=== PATIENT | male | born 1955 | race Caucasian/White ===

== ENCOUNTER 2017-07-27 06:55 | Observation (INO) | payer BC ==
[2017-07-27] VITALS (18 sets, daily range): BP systolic 128–145; BP diastolic 67–88; PULSE 63–73; RESP 12–23; Ht 175.3 cm; Wt 74.0 kg
[~2017-07-27] VITALS: Ht 175.3 cm; Wt 74.0 kg
[~2017-07-27 06:55] MED LIST: CEFAZOLIN 1 GM/50 ML (PMX) 50 ML IVPB SCH
[2017-07-27] MEDS ORDERED: CEFAZOLIN 2 GM/50 ML (PMX) 50 ML IVPB ONE (07:07)
[2017-07-27] MEDS ORDERED: HYDR-902 PO (07:26)
[2017-07-27] MEDS ORDERED: AMIO200T2 PO (07:27)
[2017-07-27] MEDS ORDERED: DIAZ5TAB4 PO (07:27)
[2017-07-27] MEDS ORDERED: TICA90TA PO (07:28)
[2017-07-27] MEDS ORDERED: ATOR40TA68 PO (07:28)
[2017-07-27] MEDS ORDERED: RIVA20TA PO (07:29)
[2017-07-27] MEDS ORDERED: DILT180C55 PO (07:30)
[2017-07-27] MEDS ORDERED: DILT180T PO (07:30)
[2017-07-27] MEDS ORDERED: ONDANSETRON 4 MG INJ IV PRN (08:30)
[2017-07-27] MEDS ORDERED: hydrALAzine 20 MG INJ IV PRN (08:30)
[2017-07-27] MEDS ORDERED: LABETALOL HCL 20MG INJ IV PRN (08:30)
[2017-07-27] MEDS ORDERED: FENTAnyl 50 MCG/ML VIAL IV PRN ×2 (08:30)
[2017-07-27] MEDS ORDERED: MIDAZOLAM 1 MG/ML 2 ML INJ IV PRN (08:30)
[2017-07-27] MEDS ORDERED: FENTAnyl 50 MCG/ML VIAL ONE ×2 (08:31→08:32)
[2017-07-27] MEDS ORDERED: ONDANSETRON 4 MG INJ ONE (08:31)
[2017-07-27] MEDS ORDERED: PROPOFOL 100 ML ONE (08:31)
[2017-07-27] MEDS ORDERED: MIDAZOLAM 1 MG/ML 2 ML INJ ONE (08:31)
[2017-07-27] MEDS ORDERED: LIDOCAINE 2% (SDV) 5 ML INJ ONE (08:31)
[2017-07-27] MEDS ORDERED: LIDOCAINE 1%/EPI 30 ML INJ ONE (08:43)
[2017-07-27] MEDS ORDERED: LIDOCAINE 1% (MDV) 20 ML INJ ONE (08:57)
[2017-07-27] MEDS ORDERED: IODIXANOL LOCM 50 ML BTL ONE (10:36)
[2017-07-27] MEDS ORDERED: SOD CHLORIDE 0.9% 1,000 ML ONE (10:37)
--- NOTE | 2017-07-27 10:59 | SIPON ---
Date/Time of Note Date/Time of Note DATE: 07/27/17 TIME: 10:58 Operative Report Preoperative Diagnosis sick sinus syndrome Postoperative Diagnosis same Operation/Procedure Performed pace maker implant Surgeon see signature line social worker assistant none Anesthesia: moderate sedation Estimated blood loss: none Transfusion Required none Specimen pacer implant Grafts/Implants none Complications none CATHRYN ALY MD Jul 27, 2017 10:59
[2017-07-27] MEDS: morphine (1 MG/ML) 10ML SYRINGE IV PRN ×3 (11:30→11:49)
[2017-07-27] MEDS ORDERED: HYDROCODONE/APAP (10/325) TAB PO PRN ×2 (11:30→13:35)
[2017-07-27] MEDS: SOD CHLORIDE 0.9% 1,000 ML IV SCH (12:27)
[2017-07-27] MEDS: CEFAZOLIN 1 GM/50 ML (PMX) 50 ML IVPB SCH ×2 (13:40→22:36)
[2017-07-27] MEDS: DIAZEPAM 5 MG TAB PO SCH ×2 (13:41→20:51)
[2017-07-27] MEDS ORDERED: CEFAZOLIN 1 GM/50 ML (PMX) 50 ML IVPB SCH (14:00)
--- NOTE | 2017-07-27 14:18 | RADRPT ---
PROCEDURE: XR Chest. CLINICAL INDICATION: Pacemaker placement. TECHNIQUE: Single frontal view. COMPARISON: None. FINDINGS: The lungs are clear. There is a dual lead permanent pacemaker. The heart size is normal. There is no pleural effusion. There is no pneumothorax. IMPRESSION: 1. Dual lead permanent pacemaker. 2. Otherwise normal chest radiograph. 3. No pneumothorax. RPTAT: QQ .Richard Mccarthy MD, MD Date Time Electronically viewed and signed by .Richard Mccarthy MD, MD on 07/27/2017 14:17 .R/
--- NOTE | 2017-07-27 14:47 | OPR ---
DATE OF OPERATION: 07/27/2017 INDICATION FOR THE PROCEDURE: Sick sinus syndrome, severe bradycardia with episodes of pauses leadi ng to episodes of near syncope and fatigue. The patient presents for pacemaker implant. PROCEDURE: 1. Implantation of dual chamber pacemaker. 2. Implantation of right atrial lead. 3. Implantation of right ventricular lead. 4. Right atrial pacing recording. 5. Right ventricular pacing recording. 6. Catheter placement from the superior vena cava. 7. Lead placement in the right atrium and right ventricle as I mentioned. 8. Contrast sonography of the superior vena cava and subclavian vessel on the left side. 9. O2 saturation monitoring and blood pressure monitoring. 10. Defibrillator pad placements anteriorly and posteriorly. 11. Autonomic nervous system interrogation. DESCRIPTION OF PROCEDURE: After informed consent was obtained by the patient, the patient was broug ht into the cardiac catheterization laboratory where the patient's left chest and neck region was pr epped and draped in usual sterile fashion. Following this, 1% lidocaine was used in order to infilt rate at the left deltopectoral groove. Following this, a 1 inch incision was made. No complication s occurred. Following this, the patient then had contrast sonography and subclavian stick and leads were placed in the right atrium and right ventricle with no complications. Following this, right a trial pacing recording, right ventricular pacing recording was performed. Device was brought to the field. Device and leads were connected to each other and placed into the pocket. Pocket was sutur ed using 2-0 Vicryl and 4-0 Vicryl. IMPRESSION: Implantation of a dual chamber [employer] pacemaker. Please see the implant shee t for the pacing and recording as well as the device information. Dictated By: CATHRYN ALY MD, LP/SOLOMON Conf#: [id number] DID#: [id number]
[2017-07-27] MEDS: morphine 2 MG INJ IV PRN ×2 (14:51→18:41)
--- NOTE | 2017-07-27 14:53 | RADRPT ---
Vent Rate: 73 bpm RR Interval: 0 msec [place] Interval: 210 msec QRS Duration: 84 msec QT Interval: 430 msec QTC Interval: 473 msec P-R-T [place]: 73 - 64 - 73 degrees Sinus rhythm with 1st degree AV block Septal infarct , age undetermined Abnormal ECG Electronically Signed By: Anegl Dean [id number]
--- NOTE | 2017-07-27 14:57 | RADRPT ---
Vent Rate: 71 bpm RR Interval: 0 msec [place] Interval: 204 msec QRS Duration: 86 msec QT Interval: 444 msec QTC Interval: 482 msec P-R-T [place]: 66 - 53 - 69 degrees Normal sinus rhythm Prolonged QT Abnormal ECG Electronically Signed By: Angel Dean [id number]
--- NOTE | 2017-07-27 16:19 | QN ---
Documentation Comment [id number] MOISES POWER MD Jul 27, 2017 16:18
[2017-07-27] MEDS: RIVAROXABAN 20 MG TABLET PO SCH (20:51)
[2017-07-27] MEDS: ATORVASTATIN 40 MG TAB PO SCH (20:51)
[2017-07-27] MEDS: TICAGRELOR 90 MG TABLET PO SCH (20:52)
[2017-07-27] MEDS: HYDROCODONE/APAP (10/325) TAB PO PRN (20:54)
[2017-07-28] VITALS (11 sets, daily range): BP systolic 123–169; BP diastolic 71–87; PULSE 60–69; RESP 16–21
[2017-07-28] MEDS: morphine 2 MG INJ IV PRN ×4 (00:43→20:07)
[2017-07-28] MEDS: SOD CHLORIDE 0.9% 1,000 ML IV SCH ×2 (04:10→20:09)
--- NOTE | 2017-07-28 05:42 | HP ---
DATE OF ADMISSION: 07/27/2017 HISTORY OF PRESENT ILLNESS: Jesus Hoover is a 61-year-old male with history of Afib, A flutter, CAD and stent placement in the past. The patient has sick sinus syndrome, severe bradycardia with _ near syncope and fatigue, underwent implantation of dual chamber pacemaker, implantation of right axillary lead, right ventricular lead. Patient also has a defibrillator pad placement anteriorly and posteriorly system interrogation. He is being seen for post- procedure finding of left shoulder, left chest wall pain. PAST MEDICAL HISTORY: CAD, history of angiogram, history of stent placement, history of sick sinus syndrome, Afib/flutter. The patient has a history of dyslipidemia. ALLERGY HISTORY: NEGATIVE. FAMILY HISTORY: Denies. SOCIAL HISTORY: Negative. MEDICATION HISTORY: 1. Amiodarone. 2. Lipitor. 3. Diazepam. 4. Diltiazem. 5. Hydrocodone. 6. Xarelto. 7. Brilinta REVIEW OF SYSTEMS: HEENT: Unremarkable. RESPIRATORY: Unremarkable. CARDIOVASCULAR: Unremarkable except as mentioned above. ABDOMEN: Unremarkable. EXTREMITIES: Unremarkable except as mentioned above. PHYSICAL EXAMINATION: GENERAL: Thin-looking male, alert. VITAL SIGNS: Pulse 70, blood pressure 130/ HEAD: Atraumatic, normocephalic. Pupils equal, reactive. NECK: Supple, no JVD. LUNGS: Clear. CARDIOVASCULAR: S1, S2 are normal. ABDOMEN: Soft. Bowel sounds positive. No palpable mass or hepatosplenomegaly. EXTREMITIES: No cyanosis, clubbing, or edema. CENTRAL NERVOUS SYSTEM: The patient is awake, alert. No focal deficit. SKIN: Left-sided pacemaker noted. LABORATORY DATA: Not available at the time for review. IMPRESSION: 1. Status post dual chamber pacemaker placement. 2. Sick sinus syndrome. 3. History of sinus bradycardia. OTHER DIAGNOSES: CAD, history of stent placement, history of dyslipidemia. PLAN: At this point is to continue current treatment and prophylactic antibiotics. Check laboratory data. The patient has a CBC, BMP ordered, pain medication, [place] and morphine. will be given. Orders were done. Dictated By: MOISES POWER MD BS/NTS Conf#: [id number] DID#: [id number] [facility]
[2017-07-28] MEDS: CEFAZOLIN 1 GM/50 ML (PMX) 50 ML IVPB SCH ×3 (05:46→21:57)
[2017-07-28 07:28] LABS: BASOPHILS % 0.6 % (0.0-2.0); EOSINOPHILS # 0.1 10^3/ul (0.0-0.5); EOSINOPHILS % 1.1 % (0.0-7.0); HEMOGLOBIN 11.8 g/dl (14.0-18.0); LYMPHOCYTES # 1.2 10^3/ul (0.8-2.9); LYMPHOCYTES % 22.4 % (15.0-51.0); MEAN CORPUSCULAR HEMOGLOBIN 28.6 pg (29.0-33.0); MEAN CORPUSCULAR HGB CONC 32.8 g/dl (32.0-37.0); MEAN CORPUSCULAR VOLUME 87.4 fl (82.0-101.0); MEAN PLATELET VOLUME 12.7 fl (7.4-10.4); MONOCYTE # 0.5 10^3/ul (0.3-0.9); MONOCYTES % 9.2 % (0.0-11.0); NEUTROPHIL # 3.6 10^3/ul (1.6-7.5); NEUTROPHILS % 66.5 % (39.0-77.0); PLATELET COUNT 148 10^3/UL (140-415); RED BLOOD COUNT 4.12 10^6/ul (4.70-6.10); RED CELL DISTRIBUTION WIDTH 13.3 % (11.5-14.5); WHITE BLOOD COUNT 5.4 10^3/ul (4.8-10.8)
[2017-07-28 07:56] LABS: ALBUMIN 3.8 g/dl (3.3-4.9); ALBUMIN/GLOBULIN RATIO 1.52; BILIRUBIN,INDIRECT 0.4 mg/dl (0-1.1); BILIRUBIN,TOTAL 0.4 mg/dl (0.2-1.3); CALCIUM 8.6 mg/dl (8.4-10.2); CREATININE 1.25 mg/dl (0.61-1.24); POTASSIUM 4.1 mmol/L (3.5-5.1); TOTAL PROTEIN 6.3 g/dl (6.1-8.1)
[2017-07-28] MEDS: AMIODARONE 200 MG TAB PO SCH (10:45)
[2017-07-28] MEDS: DIAZEPAM 5 MG TAB PO SCH ×2 (10:45→20:07)
[2017-07-28] MEDS: DILTIAZEM (CD) 180 MG CAP PO SCH (10:46)
[2017-07-28] MEDS: HYDROCODONE/APAP (10/325) TAB PO PRN (10:48)
[2017-07-28] MEDS: TICAGRELOR 90 MG TABLET PO SCH ×2 (10:52→20:08)
[2017-07-28] MEDS: HYDROmorphONE 4 MG TAB PO PRN ×2 (12:54→17:06)
[2017-07-28] MEDS: RIVAROXABAN 20 MG TABLET PO SCH (17:07)
--- NOTE | 2017-07-28 18:34 | PN ---
Date/Time of Note Date/Time of Note DATE: 07/28/17 TIME: 18:33 Assessment/Plan VTE Prophylaxis VTE Prophylaxis Intervention: other Lines/Catheters IV Catheter Type (from Nrsg): Saline Lock Assessment/Plan Chief Complaint/Hosp Course IMPRESSION: 1. Status post dual chamber pacemaker placement. 2. Sick sinus syndrome. 3. History of sinus bradycardia. 4 kendrick plan pain meds ck labs Problems: Subjective 24 Hr Interval Summary Subjective hx not possible: other (pacemaker site pain+) Exam/Review of Systems Vital Signs Vitals Vital Signs Date Time Temp Pulse Resp B/P Pulse Ox O2 Delivery O2 Flow Rate FiO2 07/28/17 16:12 67 07/28/17 15:58 98.5 18 152/87 96 07/27/17 11:49 Room Air Intake and Output 07/27/17 07/27/17 07/28/17 15:00 23:00 07:00 Intake Total 300 ml 1000 ml Output Total 500 ml 1200 ml Balance -200 ml -200 ml Exam Respiratory: clear to auscultation Cardiovascular: regular rate and rhythm Gastrointestinal: bowel sounds (+), soft Extremities: edema (+) Results Result Diagram: 07/28/17 0703 07/28/17 0703 Results 24 hrs Laboratory Tests Test 07/28/17 07:03 White Blood Count 5.4 Red Blood Count 4.12 L Hemoglobin 11.8 L Hematocrit 36.0 L Mean Corpuscular Volume 87.4 Mean Corpuscular Hemoglobin 28.6 L Mean Corpuscular Hemoglobin Concent 32.8 Red Cell Distribution Width 13.3 Platelet Count 148 Mean Platelet Volume 12.7 H Neutrophils % 66.5 Lymphocytes % 22.4 Monocytes % 9.2 Eosinophils % 1.1 Basophils % 0.6 Nucleated Red Blood Cells % 0.0 Neutrophils # 3.6 Lymphocytes # 1.2 Monocytes # 0.5 Eosinophils # 0.1 Basophils # 0.0 Nucleated Red Blood Cells # 0.0 Sodium Level 145 H Potassium Level 4.1 Chloride Level 108 Carbon Dioxide Level 26 Anion Gap 15 Blood Urea Nitrogen 15 Creatinine 1.25 H Glucose Level 88 Calcium Level 8.6 Total Bilirubin 0.4 Direct Bilirubin 0.00 Indirect Bilirubin 0.4 Aspartate Amino Transf (AST/SGOT) 18 Alanine Aminotransferase (ALT/SGPT) 26 Alkaline Phosphatase 82 Total Protein 6.3 Albumin 3.8 Globulin 2.50 Albumin/Globulin Ratio 1.52 Medications Medications Current Medications Amiodarone HCl (Cordarone) 200 mg DAILY PO Last administered on 07/28/17 10:45 ; Admin Dose 200 MG; Start 07/28/17 at 09:00 Atorvastatin Calcium (Lipitor) 40 mg QHS PO Last administered on 07/27/17 20: 51; Admin Dose 40 MG; Start 07/27/17 at 21:00 Diazepam (Valium) 5 mg BID PO Last administered on 07/28/17 10:45; Admin Dose 5 MG; Start 07/27/17 at 11:30 Ticagrelor (Brilinta) 90 mg Q12 PO Last administered on 07/28/17 10:52; Admin Dose 90 MG; Start 07/27/17 at 21:00 Diltiazem HCl 180 mg 180 mg DAILY PO Last administered on 07/28/17 10:46; Admin Dose 180 MG; Start 07/28/17 at 09:00 Cefazolin Sodium 50 ml @ 100 mls/hr Q8 IVPB Last administered on 07/28/17 13: 14; Admin Dose 100 MLS/HR; Start 07/27/17 at 14:00 Sodium Chloride (NS) 1,000 ml @ 60 mls/hr [id number] IV Last administered on 12:27; Admin Dose 60 MLS/HR; Start 07/27/17 at 11:30 Morphine Sulfate (morphine) 2 mg Q4H PRN IV SEVERE PAIN LEVEL 7-10 Last administered on 07/28/17 10:43; Admin Dose 2 MG; Start 07/27/17 at 14:30 Hydromorphone HCl (Dilaudid) 4 mg Q4H PRN PO PAIN Last administered on 17:06; Admin Dose 4 MG; Start 07/28/17 at 12:00 MOISES POWER MD Jul 28, 2017 18:34
--- NOTE | 2017-07-28 19:31 | RADRPT ---
Vent Rate: 63 bpm RR Interval: 0 msec [place] Interval: 224 msec QRS Duration: 80 msec QT Interval: 436 msec QTC Interval: 446 msec P-R-T [place]: 68 - 55 - 66 degrees Sinus rhythm with 1st degree AV block Otherwise normal ECG Electronically Signed By: Angel Dean [id number]
[2017-07-28] MEDS: ATORVASTATIN 40 MG TAB PO SCH (20:07)
[2017-07-28] MEDS ORDERED: ZOLPIDEM 5 MG TAB PO PRN (22:04)
[2017-07-29] VITALS (9 sets, daily range): BP systolic 146–167; BP diastolic 52–86; PULSE 67–76; RESP 16–21
[2017-07-29] MEDS: SOD CHLORIDE 0.9% 1,000 ML IV SCH ×2 (01:13→13:30)
[2017-07-29] MEDS: morphine 2 MG INJ IV PRN ×3 (02:53→12:46)
[2017-07-29] MEDS: CEFAZOLIN 1 GM/50 ML (PMX) 50 ML IVPB SCH ×2 (05:41→14:26)
[2017-07-29] MEDS: HYDROmorphONE 4 MG TAB PO PRN ×2 (05:42→14:46)
[2017-07-29 07:49] LABS: ALBUMIN 3.9 g/dl (3.3-4.9); ALBUMIN/GLOBULIN RATIO 1.25; BILIRUBIN,INDIRECT 0.6 mg/dl (0-1.1); BILIRUBIN,TOTAL 0.6 mg/dl (0.2-1.3); CREATININE 1.15 mg/dl (0.61-1.24); POTASSIUM 3.8 mmol/L (3.5-5.1)
[2017-07-29] MEDS: TICAGRELOR 90 MG TABLET PO SCH (09:18)
[2017-07-29] MEDS: AMIODARONE 200 MG TAB PO SCH (09:18)
[2017-07-29] MEDS: DIAZEPAM 5 MG TAB PO SCH (09:19)
[2017-07-29] MEDS: DILTIAZEM (CD) 180 MG CAP PO SCH (09:20)
--- NOTE | 2017-07-29 12:34 | PDOCDIS ---
Discharge Instructions CONDITION Patient Condition: Stable HOME CARE INSTRUCTIONS: Diet Instructions: Low Fat /Cholesterol ACTIVITY: Activity Restrictions: Slowly Increase Activity FOLLOW UP/APPOINTMENTS Follow-up Plan f/u own pcp [address] quinn 1 wk MOISES POWER MD Jul 29, 2017 12:34
[2017-07-29] MEDS ORDERED: CEPH250S33 PO (12:36)
[2017-07-29] MEDS ORDERED: HYDR4TAB51 PO (12:36)
[2017-07-29] MEDS: RIVAROXABAN 20 MG TABLET PO SCH (17:16)
--- NOTE | 2017-08-01 12:08 | QN ---
Documentation Comment [id number] MOISES POWER MD Aug 01, 2017 12:08
--- NOTE | 2017-08-01 19:55 | DS ---
DATE OF ADMISSION: 07/27/2017 DATE OF DISCHARGE: 07/29/2017 HOSPITAL COURSE: The patient was admitted with the diagnosis of sick sinus syndrome, history of sinus bradycardia, underwent a dual-chamber pacemaker placement. Postop, patient had chest wall pain, also electrolyte imbalance. The patient has acute kidney injury, resolving. The patient was cleared by communications consultant to be discharged home. DISCHARGE DIAGNOSES: Patient has sick sinus syndrome, patient had bradycardia status post pacemaker placement, acute kidney injury, anemia. DISCHARGE MEDICATIONS: Patient to continue on: 1. Keflex. 2. [place] codone 3. Dilaudid. 4. Amiodarone. 5. Lipitor. 6. Diazepam. 7. Xarelto. 8. Brilinta. The patient to follow with Dr. Hoover as an outpatient. DIET: Cardiac diet. DISPOSITION: Patient is stable at the time of discharge. Dictated By: MOISES POWER MD BS/SOLOMON Conf#: [id number] DID#: [id number] [facility]
== END 2017-07-29 17:34 | disposition home or self-care (01) ==
LOC: SDS 06:55 → REC 11:05 → SDS 11:05 → MS4 12:17
PROVIDERS: ADMIT Internal Medicine Nephrology; ATTEND Internal Medicine Nephrology
DX: I49.5 Sick sinus syndrome (principal); R00.1 Bradycardia, unspecified; N17.9 Acute kidney failure, unspecified; D64.9 Anemia, unspecified; I10 Essential (primary) hypertension; I25.10 Atherosclerotic heart disease of native coronary artery without angina pectoris; Z95.5 Presence of coronary angioplasty implant and graft; E78.5 Hyperlipidemia, unspecified; I48.0 Paroxysmal atrial fibrillation; I48.92 Unspecified atrial flutter; Z79.01 Long term (current) use of anticoagulants
CPT/HCPCS: 33208; 71010; 80053; 85025; 93005; C1777; C1779; C1785; J0690; J1170; J1644; J2250; J2270; J2405; J3010; J7030; J7040; Q9967; Z7500; Z7610; G0378

== ENCOUNTER 2017-10-27 22:58 | Inpatient (IN) | END 2017-10-30 13:00 | disposition home or self-care (01) | DRG 394 ==

== ENCOUNTER 2018-06-18 20:07 | Inpatient (IN) | END 2018-06-22 18:00 | disposition home or self-care (01) | DRG 640 ==